=== PATIENT | female | born 2005 | race Two or more races ===

== ENCOUNTER 2025-06-03 14:57 | Emergency (ER) | payer MEDICAID, SELFPAY ==
[2025-06-03 14:58] VITALS: BMI 23.9
[2025-06-03 15:07] VITALS: BP 143/86; PULSE 62; RESP 18; TEMP 37.2; O2SAT 98
--- NOTE | 2025-06-03 15:12 | XR_ITS ---
Examination: Left elbow 3 views Technique: Elbow AP, oblique, lateral 3 views Exam date and time: June 03, 2025, 1515 hrs. Indications: Injury to the elbow today, elbow pain. Findings: No fracture or dislocation. No foreign body Impression: No fracture or dislocation..
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
--- NOTE | 2025-06-03 15:12 | XR_ITS ---
Examination: Hand, right 3 views Technique: Hand AP, oblique, lateral 3 views Date and time of exam: June 03, 2025, 1515 hrs. Indications: Injury to the hand 2 days ago, hand pain Findings: Mild deformity at the base of the fifth metacarpal suspicious for nondisplaced fracture No foreign body Impression: Suspicious for nondisplaced fracture base fifth metacarpal, clinical correlation advised
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
[2025-06-03] MEDS: IBUPROFEN TAB 600 MG TABLET PO (17:05)
== END 2025-06-03 17:43 | disposition home or self-care (01) ==
PROVIDERS: Emergency Provider Emergency Medicine
DX: S62.316A Displaced fracture of base of fifth metacarpal bone, right hand, initial encounter for closed fracture (principal); S09.90XA Unspecified injury of head, initial encounter; S59.902A Unspecified injury of left elbow, initial encounter; Y04.0XXA Assault by unarmed brawl or fight, initial encounter
CPT/HCPCS: 29105; 70450; 73080; 73130; 99283; A9270

== ENCOUNTER 2025-06-23 15:25 | Emergency (ER) | payer MEDICAID, SELFPAY ==
[2025-06-23 15:26] VITALS: BMI 20.7
[2025-06-23 16:31] VITALS: BP 124/88; PULSE 64; RESP 18; TEMP 37.2; O2SAT 96
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
== END 2025-06-23 16:51 | disposition home or self-care (01) ==
LOC: SERX 16:53
PROVIDERS: Emergency Provider Family Medicine
DX: S62.306D Unspecified fracture of fifth metacarpal bone, right hand, subsequent encounter for fracture with routine healing (principal); X58.XXXD Exposure to other specified factors, subsequent encounter
CPT/HCPCS: 99282

== ENCOUNTER → 2025-07-13 | Outpatient (CLI) | payer MEDICAID, SELFPAY ==
--- NOTE | 2025-07-13 16:51 | XR_ITS ---
Examination: Hand, right 3 views Technique: Hand AP, oblique, lateral 3 views Date and time of exam: July 13, 2025, 1706 hrs., Comparison June 03, 2025 Indications: Acute fracture fifth metacarpal June 03, 2025. Findings: Significant osteopenia. Healed fracture base fifth metacarpal with satisfactory alignment Impression: Healed fracture base fifth metacarpal with satisfactory alignment.
--- NOTE | 2025-07-13 16:51 | XR_ITS ---
Examination: Wrist, right 3 views Technique: Wrist AP, oblique, lateral 3 views Date and time of exam: July 13, 2025, 1706 hrs. Indications: Nondisplaced fracture base fifth metacarpal June 03 Findings: Severe osteopenia. Healed fracture base fifth metacarpal with satisfactory alignment No acute torus fracture Impression: Healed fracture base fifth metacarpal with satisfactory alignment.
== END | disposition home or self-care (01) ==
LOC: CDIM 16:44
PROVIDERS: PCP Physician Assistant; Referring Provider Nurse Practitioner Gerontology; Visit Provider Nurse Practitioner Gerontology
DX: M79.641 Pain in right hand (principal); M25.531 Pain in right wrist; Z87.81 Personal history of (healed) traumatic fracture
CPT/HCPCS: 73110; 73130